=== PATIENT | male | born 1965 | race Caucasian/White ===

== ENCOUNTER 2019-12-12 15:00 | Emergency (ER) | payer MEDICAID ==
[~2019-12-12] VITALS: Ht 175.3 cm; Wt 84.1 kg
[2019-12-12 16:33] LABS: BASOPHILS % (AUTO) 0.4 % (0-1); EOSINOPHILS % (AUTO) 0.4 % (0-6); HEMATOCRIT 41.5 % (42.0-52.0); HEMOGLOBIN 14.7 g/dl (14.0-17.9); LYMPHOCYTES # (AUTO) 1.1 X10'3 (1.1-4.8); LYMPHOCYTES % (AUTO) 14.5 % (21-51); MEAN CORPUSCULAR HGB CONC 35.3 g/dL (33.0-36.5); MEAN CORPUSCULAR VOLUME 93.3 FL (78-98); MONOCYTES # (AUTO) 0.4 X10'3 (0-0.9); MONOCYTES % (AUTO) 5.6 % (2-12); NEUTROPHILS % (AUTO) 79.1 % (42-75); PLATELET COUNT 323 X10'3 (140-440); RED BLOOD COUNT 4.45 X10'6 (4.70-6.10); RED CELL DISTRIBUTION WIDTH 13.7 % (11.5-14.5); WHITE BLOOD COUNT 7.5 X10'3 (4.5-11.0)
[2019-12-12 16:52] LABS: ALANINE AMINOTRANSFERASE 32 U/L (12-78); ALBUMIN 4.4 G/DL (3.4-5.0); ALBUMIN/GLOBULIN RATIO 1.3 (1.1-1.5); ALKALINE PHOSPHATASE 75 IU/L (46-116); ANION GAP 7 (8-16); ASPARTATE AMINO TRANSFERASE 20 U/L (10-37); BILIRUBIN,TOTAL 0.2 MG/DL (0.1-1.0); BLOOD UREA NITROGEN 10 MG/DL (7-18); CALCIUM 9.3 MG/DL (8.5-10.1); CHLORIDE 93 MMOL/L (99-107); CREATININE 0.83 MG/DL (0.60-1.10); GLUCOSE 98 MG/DL (70-104); SODIUM 129 MMOL/L (135-145); TOTAL CARBON DIOXIDE 28.7 MMOL/L (24-32); TOTAL PROTEIN 7.7 G/DL (6.4-8.2); eGFR > 90 ML/MIN
[2019-12-12 16:54] LABS: CLARITY,URINE SLIGHTLY CLOUDY (Clear); COLOR,URINE YELLOW (Yellow); GLUCOSE, URINE NEGATIVE (Neg); KETONES,URINE NEGATIVE (Neg); LEUKOCYTE ESTERASE ,URINE SMALL (Neg); NITRITES, URINE POSITIVE (Neg); OCCULT BLOOD,URINE NEGATIVE (Neg); PROTEIN,URINE NEGATIVE (Neg); UROBILINOGEN,URINE 0.2 E.U/dL (0.2-1.0)
[2019-12-12 17:02] LABS: UA COLLECTION TYPE VOIDED
[2019-12-12 17:03] LABS: BACTERIA,URINE 4+ /HPF (Neg); MUCUS STRANDS FEW /LPF (Neg); RBC,URINE NONE SEEN /HPF (0-2); SQUAMOUS EPITHELIAL CELL,UR NONE SEEN /LPF (FEW); WBC CLUMPS,URINE MODERATE /HPF (NEGATIVE)
[2019-12-12 17:07] LABS: ACETAMINOPHEN < 2.0 UG/ML (10-30); ETHANOL < 0.010 GM/DL (0.0-0.010); VALPROATE < 3.0 UG/ML (50-100)
[2019-12-12 17:14] LABS: URINE AMPHETAMINE SCREEN NEGATIVE (Neg); URINE BARBITUATE SCREEN NEGATIVE (Neg); URINE BENZODIAZEPINES SCREEN POSITIVE (Neg); URINE CANNABINOID SCREEN NEGATIVE (Neg); URINE COCAINE SCREEN NEGATIVE (Neg); URINE METHADONE SCREEN NEGATIVE (Neg); URINE OPIATE SCREEN NEGATIVE (Neg); URINE PHENCYCLIDINE SCREEN NEGATIVE (Neg)
[2019-12-12] MEDS ORDERED: nicotine 14mg patch - 24hr TD ONE (18:10)
[2019-12-12] MEDS: sulfamethoxazole/trimethoprim DS (800/160mg) tablet PO SCH ×2 (18:23→21:16)
[2019-12-12] MEDS ORDERED: acetaminophen 325mg tablet PO ONE (18:45)
--- NOTE | 2019-12-12 20:00 | NUR ---
The patient moved to bed 21 from the main ER. He is 54 years old and was brought to the ER on a 5150 by [facility] after he has been having command auditory hallucinations telling him to kill himself. He reports that he is hearing voices that are "Satan and all of his spirits....they are commanding me to kill myself" He reports [facility] of people in white robes. He denies that he feels like harming himself or others but is hearing voices to kill himself. He has been very cooperative with the assessment process.
--- NOTE | 2019-12-12 21:00 | NUR ---
Packet sent to [facility] and they report [facility].
[2019-12-12] MEDS ORDERED: BENZ0.5T43 PO (21:04)
[2019-12-12] MEDS ORDERED: LOSA25TA96 PO (21:04)
[2019-12-12] MEDS ORDERED: PALI9TAB PO (21:04)
[2019-12-12] MEDS ORDERED: DIPH25CA83 PO (21:04)
[2019-12-12] MEDS ORDERED: HYDR12.55 PO (21:04)
[2019-12-12] MEDS ORDERED: CARB200T PO (21:04)
[2019-12-12] MEDS ORDERED: DIAZ5TAB4 PO (21:04)
[2019-12-12] MEDS ORDERED: ATOR40TA PO (21:04)
[2019-12-12] MEDS ORDERED: LEVE10002 PO (21:04)
[2019-12-12] MEDS ORDERED: diphenhydrAMINE 25mg capsule PO SCH (21:42)
[2019-12-12] MEDS ORDERED: atorvastatin 20mg tablet PO SCH (21:46)
[2019-12-12] MEDS: diazepam 5mg tablet PO SCH (22:12)
[2019-12-12] MEDS: benztropine 1mg tablet PO SCH (22:12)
[2019-12-12] MEDS: levetiracetam 250mg tablet PO SCH (22:12)
[2019-12-12] MEDS: carBAMazepine 100mg chewable tablet PO SCH (22:13)
--- NOTE | 2019-12-12 23:32 | NUR ---
Report to Gui Hastings.
--- NOTE | 2019-12-12 23:59 | NUR ---
The patient appears to be sleeping
--- NOTE | 2019-12-13 03:20 | NUR ---
The patient appears to be sleeping
--- NOTE | 2019-12-13 05:15 | NUR ---
The patient appears to be asleep
[2019-12-13 05:42] VITALS: BP 152/96
--- NOTE | 2019-12-13 06:28 | NUR ---
pt sitting up in bed, calm and pleasant. asking to get cleaned. soap and rag and new scrubs provided.
--- NOTE | 2019-12-13 07:30 | NUR ---
Dr. Rebolledo rounding on pt.
[2019-12-13] MEDS ORDERED: HYDROchlorothiazide 12.5mg capsule PO SCH (08:00)
[2019-12-13] MEDS ORDERED: losartan 25mg tablet PO SCH (08:00)
[2019-12-13] MEDS ORDERED: PALIPERIDONE 3 MG TAB.ER.24 PO SCH (08:00)
[2019-12-13] MEDS: sulfamethoxazole/trimethoprim DS (800/160mg) tablet PO SCH (08:19)
[2019-12-13] MEDS: levetiracetam 250mg tablet PO SCH (08:19)
[2019-12-13] MEDS: benztropine 1mg tablet PO SCH (08:19)
[2019-12-13] MEDS: diazepam 5mg tablet PO SCH (08:19)
[2019-12-13] MEDS: carBAMazepine 100mg chewable tablet PO SCH (08:38)
--- NOTE | 2019-12-13 08:44 | NUR ---
sitting up on side of bed eating breakfast, calm, cooperative, and pleasant. plan for pt to go to [facility] within the hour, pt aware of POC.
--- NOTE | 2019-12-13 09:31 | NUR ---
sitting up in bed, awake, calm, and cooperative.
--- NOTE | 2019-12-13 09:56 | NUR ---
pt picked up by transporter and taken to [facility].
== END 2019-12-13 10:02 ==
LOC: ER 15:01
DX: F22 Delusional disorders (principal); F17.200 Nicotine dependence, unspecified, uncomplicated; Z88.8 Allergy status to other drugs, medicaments and biological substances; Z79.899 Other long term (current) drug therapy
CPT/HCPCS: 36415; 80053; 80164; 80178; 80305; 80320; 80329; 81001; 84443; 85025; 87077; 87088; 87186; 99285; Q0163